=== PATIENT | male | born 1990 | race Caucasian/White ===

== ENCOUNTER 2018-08-25 10:21 | Inpatient (IN) | payer BC, OTHER ==
[2018-08-25] MEDS ORDERED: SODIUM CHLORIDE 0.9% 1000ML 1,000 ML IVS ONE (10:39)
[2018-08-25] MEDS ORDERED: PROMETHAZINE HCL INJ 25 MG in SODIUM CHLORIDE 0.9% 50ML 50 ML IVPB ONE (10:40)
[2018-08-25] MEDS ORDERED: PANTOPRAZOLE SODIUM IV 40 MG VIAL IV ONE (10:40)
[2018-08-25] MEDS ORDERED: THIAMINE HCL INJ 100 MG/ML VIAL IV ONE (10:42)
[2018-08-25] MEDS ORDERED: PROMETHAZINE HCL INJ 25 MG/ML VIAL ONE (10:51)
[2018-08-25] MEDS ORDERED: SODIUM CHLORIDE 0.9% 50ML 50 ML ONE (10:51)
[2018-08-25] MEDS ORDERED: SUCRALFATE 1 GM/10 ML 1 GM UD PO ONE (11:33)
[2018-08-25] MEDS ORDERED: MAGNESIUM SULFATE PREMIX 4GM 4 GM in PREMIX BAG 1 BAG IVPB ONE (11:33)
[2018-08-25] MEDS ORDERED: FOLIC ACID 1 MG TAB PO ONE (11:34)
--- NOTE | 2018-08-25 11:39 | ED.PDOC ---
History of Present Illness - General Chief Complaint: Drug or Alcohol Abuse Stated Complaint: Alcohol withdrawl Time Seen by Provider: 08/25/18 10:34 Source: patient Exam Limitations: no limitations - History of Present Illness Initial Comments: The patient is a 27-year-old male presenting to the emergency room secondary to alcohol withdrawal. He does have a history of drinking a significant amount of alcohol up to a case a day. He has required hospitalization in the past for his withdrawals which include diaphoresis, tremors and delirium. No history of any seizures to this point. He has been throwing up since the middle of last night as well. No blood. No history of any hepatitis or pancreatitis. No history of hospitalization for any other reason and he does not take any daily medications. He is alert and oriented. He is tremulous and mildly diaphoretic. He is otherwise pleasant and cooperative.last alcohol intake was yesterday earlier in the day Timing/Duration: unsure Severity: moderate Improving Factors: nothing Worsening Factors: nothing Associated Symptoms: denies symptoms Allergies/Adverse Reactions: Allergies NO KNOWN ALLERGY Allergy (Verified 08/25/18 10:31) Home Medications: Ambulatory Orders NK [NK] 08/25/18 Review of Systems - Review of Systems Constitutional: States: no symptoms reported, diaphoresis, weakness EENTM: States: no symptoms reported Respiratory: States: no symptoms reported Cardiology: States: no symptoms reported Gastrointestinal/Abdominal: States: see HPI Genitourinary: States: no symptoms reported Musculoskeletal: States: no symptoms reported Skin: States: see HPI Neurological: States: see HPI Endocrine: States: excessive sweating All other Systems: No Change from Baseline Past Medical History (General) - Patient Medical History Hx Seizures: No Hx Stroke: No Hx Dementia: No Hx Asthma: No Hx of COPD: No Hx Cardiac Disorders: No Hx Congestive Heart Failure: No Hx Pacemaker: No Hx Hypertension: No Hx Thyroid Disease: No Hx Diabetes: No Hx Gastroesophageal Reflux: No Hx Renal Disease: No Hx Cancer: No Hx of HIV: No Hx Hepatitis C: No Hx MRSA: No Surgical History: no surgical history - Vaccination History Hx Tetanus, Diphtheria Vaccination: Yes Hx Influenza Vaccination: No Hx Pneumococcal Vaccination: No Immunizations Up to Date: Yes - Social History Hx Tobacco Use: No Hx Alcohol Use: Yes - 12-20 BEERS PER DAY Family Medical History - Family History Mother Family History: No Known Living Status: Still Living Father Family History: No Known Living Status: Still Living Physical Exam - Physical Exam General Appearance: Alert Eye Exam: bilateral normal Ears, Nose, Throat: hearing grossly normal, normal ENT inspection Neck: full range of motion, supple Respiratory: lungs clear, normal breath sounds, no respiratory distress, no accessory muscle use Cardiovascular/Chest: normal peripheral pulses, regular rate, rhythm, no edema Peripheral Pulses: radial,right: 2+, radial,left: 2+, dorsalis pedis,right: 2+, dorsalis pedis,left: 2+ Gastrointestinal/Abdominal: non tender, soft Rectal Exam: deferred Back Exam: normal inspection, no CVA tenderness Extremity: normal range of motion, non-tender, normal inspection, no pedal edema , normal capillary refill Neurologic: applicator sprayer II-XII nml as tested, no motor/sensory deficits, alert, oriented x 3, other - mildly tremulous Skin Exam: normal color - mildly diaphoretic Comments: Vital Signs - 24 hr 08/25/18 10:32 Temperature 98.4 F Pulse Rate [ 90 monitor] Respiratory 18 Rate Blood Pressure 181/105 [Left Arm] O2 Sat by Pulse 97 Oximetry Progress - Progress Progress: 08/25/18 11:47 the patient is a 27-year-old male presenting secondary to alcohol withdrawal. He has had a history of severe withdrawal in the past requiring hospitalization. No history of seizures. The patient also has significant gastritis issues and possibly a mild acute alcoholic hepatitis. The patient has received a liter of IV fluids as well as IV benzodiazepines and IV Phenergan. He is also receiving Protonix and Carafate. He has received multivitamin thiamine and folate. The patient will be admitted for further withdrawal care. He does also have some hypomagnesemia and is receiving IV magnesium. - Results/Orders Results/Orders: 08/25/18 11:33 Magnesium Sulfate Premix 4Gm 4 gm Premix Bag 1 bag IVPB ONCE Laboratory Results - last 24 hr 08/25/18 08/25/18 10:47 10:47 WBC 6.3 RBC 5.43 Hgb 17.4 Hct 50.6 MCV 93.2 MCH 32.0 H MCHC 34.3 RDW 13.2 Plt Count 253 MPV 7.2 L Absolute Neuts (auto) 4.60 Absolute Lymphs (auto) 0.90 L Absolute Monos (auto) 0.70 Absolute Eos (auto) 0.00 Absolute Basos (auto) 0.00 Neutrophils % 72.8 Lymphocytes % 14.9 L Monocytes % 11.8 H Eosinophils % 0.2 L Basophils % 0.3 Sodium 133 L Potassium 3.6 Chloride 95 L Carbon Dioxide 25 Anion Gap 16.6 BUN 6 L Creatinine 0.83 BUN/Creatinine Ratio 7.2 L Random Glucose 106 H Serum Osmolality 264.4 L Calcium 10.5 H Magnesium 1.4 L Total Bilirubin 1.6 H AST 69 H ALT 83 H Alkaline Phosphatase 65 Serum Total Protein 8.5 H Albumin 5.3 Globulin 3.2 Albumin/Globulin Ratio 1.7 Amylase 119 H Lipase 18 L Departure - Departure Clinical Impression: Hypomagnesemia, Hepatitis Alcohol withdrawal syndrome Qualifiers: Complication of substance-induced condition: uncomplicated Qualified Code(s): F10.230 - Alcohol dependence with withdrawal, uncomplicated Gastritis Qualifiers: Gastritis type: alcoholic Chronicity: acute Gastritis bleeding: without bleeding Qualified Code(s): K29.20 - Alcoholic gastritis without bleeding Disposition: Admit Patient Home Medications: Ambulatory Orders NK [NK] 08/25/18 Decision To Admit - Decistion To Admit Decision to Admit Reason: Medical Nature Decision to Admit Date: 08/25/18 Decision to Admit Time: 11:49
[2018-08-25] MEDS ORDERED: MAGNESIUM SULFATE PREMIX 4GM 50 ML IVPB ONE (11:40)
--- NOTE | 2018-08-25 12:05 | HP ---
SUPERVISING PHYSICIAN: Igor Ramos M.D. CHIEF COMPLAINT: Alcohol withdrawal. HISTORY OF PRESENT ILLNESS: Mr. Green is a 27 year-old male patient that presented to the Emergency Room today complaining of alcohol withdrawal. He has a significant history of drinking alcohol in the past up to a case a day and has been hospitalized in the past for withdrawals that include diaphoresis, tremors and delirium. He has no history of any seizures during his last hospitalization stay. He noted that he has been throwing up since the middle of last night but had no blood or any history in the past of pancreatitis. He was having some tremors and was mild diaphoretic initially but very cooperative. Noted his last alcohol intake was yesterday early in the day. He notes that he has been in rehab. He was in a rehab for 2 weeks about 5 months previously and was drinking anywhere from 12 to 24 beers a day. When he got out of rehab his filed divorce on him and he started drinking once again, and has been drinking for well over 4 months, mainly beer. He just moves from [place] back to [place] to be with his family. He denied any suicidal ideations or homicidal ideations. His initial lab work in the E. R. showed a normal white count at 6,300, hemoglobin and hematocrit were 17.4 and 50.6 respectively with platelet count 253,000. Differential showed to be without a left shift. RBC indices were showing to be within normal limits. Chemistries showed a mildly low sodium at 133, potassium 3.6, BUN 60 and creatinine 0.83. Calcium was high at 10.5, magnesium was low at 1.4. Bilirubin was elevated at 1.6 as well as his AST and ALT are both elevated at 69 and 83 respectively. Lipase was 18, amylase was showing to be elevated at 119. In the E. R., he was given 1 mg of Ativan and Folic acid and thiamine as well as fluids. He is now going to be admitted for acute alcohol withdrawal. He was in stable condition at time of admission. PAST MEDICAL HISTORY: No significant medical history listed. PAST SURGICAL HISTORY: None listed. CURRENT MEDICATIONS: [id number] medications or replacements: None listed. ALLERGIES: NO KNOWN DRUG ALLERGIES. FAMILY HISTORY: His dad and grandfather both have a history of alcoholism, otherwise no other significant medical history listed. SOCIAL HISTORY: The patient is currently unemployed, just recently moved from [place] to [place]. He reports he drinks alcohol on a daily basis and has for well over 4 to 5 months anywhere from 12 to 24 beers and recently in the last week he has been drinking hard liquor. He denies any tobacco or illicit drug use. REVIEW OF SYSTEMS: CONSTITUTIONAL: Notes some diaphoresis and weakness. HEENT: Denies any headaches, vision changes, sore throat, nasal congestion, ear aches. RESPIRATORY: Denies any shortness of breath, wheezing or coughing. CARDIOVASCULAR: Denies any chest pains, palpitations or syncopal episodes. GASTROINTESTINAL: As noted in History of Present Illness, some nausea and emesis in the last 24 hours. GENITOURINARY: Denies any dysuria, hematuria or polyuria. MUSCULOSKELETAL: Denies any arthralgias or other malaise, edema. INTEGUMENT: No diaphoresis. NEUROLOGIC: Noted tremors with no reported seizure activity, vision changes, ataxia, but has noted some hallucinations more so in the peripheral, nothing specific. PSYCHOLOGICAL: Denies any suicidal or homicidal ideations. Denies any auditory hallucinations but has been having some visual hallucinations. No tactile or sensory changes. PHYSICAL EXAMINATION: VITAL SIGNS: Initial vital signs in the E. R. showed temperature 98.4, pulse 90 , blood pressure 181/105, respirations 18, satting 97%. After Ativan and prior to admission to the Medical/Surgical floor he was showing a pulse of 75, blood pressure 137/87, respirations 20, satting 97% on room air. Admission weight 78.4 kg. GENERAL: The patient is alert, somewhat dehydrated-looking but is well kempt, well groomed and in no acute obvious distress, although somewhat anxious. HEENT: Tympanic membranes are clear bilaterally. Oropharynx was pink with dry mucosal membranes. NECK: Supple, non-tender with full range of motion. No jugular venous distention. CHEST: Lungs were clear to auscultation bilaterally without any rhonchi, wheezing or rales. CARDIOVASCULAR: Regular rate and rhythm without appreciable murmurs, gallops, or rubs. ABDOMEN: Soft, non-tender. Positive bowel sounds. EXTREMITIES: Without any clubbing, cyanosis or edema. NEUROLOGIC: Cranial nerves II-XII are grossly intact. No motor or sensory deficits noted. He is alert and oriented times three with mild tremors. Facial features are symmetrical. Extraocular movements are within normal limits. No notable nystagmus. SKIN: [place] and warm with some mild diaphoresis. PSYCHIATRIC: Denies any ideations of suicide or homicide tendencies and has reported some visual hallucinations but no auditory or tactile. His thought process is normal. LABORATORY STUDIES: CBC showed white count 6,300, platelet count 253,000. Differential showed to be within normal limits. Chemistries showed sodium 133, potassium 3.6, BUN 6, creatinine 0.83, glucose 106, calcium 10.5, magnesium 1.4. Bilirubin 1.6. AST and ALT were both elevated at 69 and 83 respectively. Lipase was within normal limits. Amylase was slightly elevated. RADIOLOGY: No radiographic studies were obtained to admission. ASSESSMENT: 1. Acute alcohol withdrawal syndrome with no mention of seizures and mild visual hallucinations. No auditory hallucinations. 2. Elevated liver enzymes probably due to acute alcohol ingestion and dehydration in the last 24 hours with no signs of cirrhosis. 3. Elevated amylase probably due to dehydration from acute alcohol consumption within the last 24 hours. 4. Moderate dehydration. 5. Electrolyte imbalance with hyponatremia and hypomagnesemia secondary to chronic alcohol usage. 6. History of alcoholism. PLAN: The patient is going to be admitted to the Medical/Surgical floor for close monitoring with seizure precautions and neurological assessments as well as continued cardiac monitoring as he is provided Benzodiazepines including Librium and Ativan as needed for acute withdrawal syndrome. Will go ahead and start him on a multivitamin infusion with thiamine 100 mg daily for 3 days as well as start him on some folic acid. I will start him on some Protonix and Carafate with a regular diet initiation. He will be on DVT prophylaxis as per protocol. Will provide fluid resuscitation and replacement as needed given that he is dehydrated. Will start with LR and monitor electrolytes in the morning. Will have p.r.n. Ativan for any seizure activity as well as if we need to increase Librium should he have any increase in his symptoms. At this point will schedule 10 mg every 6 hours on the Librium and adjust as needed. Will anticipate his length of stay to be at least 2 to 3 days. Until he can transition to outpatient management will continue to monitor and treat as needed. I did talk to him about his plans at time of discharge. He says that he had a good support system at home and has a strong amish family, but at this point chooses not to do any outpatient rehabilitation. #[id number] [facility]
[2018-08-25] MEDS ORDERED: SODIUM CHLORIDE 0.9% (FLUSH) 10 ML SYG IV PRN ×2 (12:45)
[2018-08-25] MEDS ORDERED: MULTIPLE VITAMIN 10 ML VIAL ONE (12:52)
[2018-08-25] MEDS ORDERED: ACETAMINOPHEN 325 MG TAB PO PRN (12:56)
[2018-08-25] MEDS ORDERED: LACTATED RINGERS 1,000 ML IVS PRN (12:56)
[2018-08-25] MEDS ORDERED: ONDANSETRON INJ 4 MG/2 ML VIAL IV PRN (12:56)
[2018-08-25] MEDS ORDERED: IV SET AND CAP CHANGE INJ INJ SCH ×2 (13:00)
[2018-08-25] MEDS ORDERED: MULTIPLE VITAMIN INJ 10 ML, FOLIC ACID INJ 1 MG in SODIUM CHLORIDE 0.9% 1000ML 1,000 ML IVS SCH (13:00)
[2018-08-25] MEDS ORDERED: FOLIC ACID INJ 5 MG/ML VIAL ONE (13:19)
[2018-08-25] MEDS: chlordiazePOXIDE HCL 5 MG CAP PO SCH ×2 (13:22→18:08)
[2018-08-25] MEDS ORDERED: MULTIPLE VITAMIN INJ 10 ML, THIAMINE HCL INJ 100 MG in SODIUM CHLORIDE 0.9% 1000ML 1,00... IVS SCH (19:00)
[2018-08-25] MEDS: LACTATED RINGERS 1,000 ML IVS PRN (20:12)
[2018-08-25] MEDS ORDERED: ENOXAPARIN SODIUM 40 MG/0.4 ML SYG SUBCU SCH (21:00)
[2018-08-26] MEDS: chlordiazePOXIDE HCL 5 MG CAP PO SCH ×2 (01:03→06:23)
[2018-08-26] MEDS: LACTATED RINGERS 1,000 ML IVS PRN (02:38)
[2018-08-26] MEDS ORDERED: THIAMINE HCL INJ 100 MG/ML VIAL ONE (08:29)
[2018-08-26] MEDS ORDERED: SODIUM CHLORIDE 0.9% 1000ML 1,000 ML ONE (08:29)
[2018-08-26] MEDS ORDERED: MULTIPLE VITAMIN 10 ML VIAL ONE (08:30)
[2018-08-26] MEDS ORDERED: MULTIPLE VITAMIN INJ 10 ML, THIAMINE HCL INJ 100 MG in SODIUM CHLORIDE 0.9% 1000ML 1,00... IVS SCH (09:00)
[2018-08-26 09:53] VITALS: BP 153/98; TEMP 98.3; O2SAT 99
[2018-08-26] MEDS ORDERED: THIAMINE HCL INJ 100 MG/ML VIAL IV ONE (10:42)
[2018-08-26] MEDS ORDERED: FOLIC ACID 1 MG TAB PO ONE (11:34)
--- NOTE | 2018-08-27 11:50 | DS ---
SUPERVISING PHYSICIAN: Igor Ramos M.D. ADMISSION DIAGNOSIS: 1. Acute alcohol withdrawal syndrome with no mention of seizures and mild visual hallucinations. No auditory hallucinations. 2. Elevated liver enzymes probably due to acute alcohol ingestion and dehydration in the last 24 hours with no signs of cirrhosis. 3. Elevated amylase probably due to dehydration from acute alcohol consumption within the last 24 hours. 4. Moderate dehydration. 5. Electrolyte imbalance with hyponatremia and hypomagnesemia secondary to chronic alcohol usage. 6. History of alcoholism. DISCHARGE DIAGNOSIS: 1. Acute alcohol withdrawal syndrome with no mention of seizures and mild visual hallucinations. No auditory hallucinations with no noted complications with no additional hallucinations noted. 2. Elevated liver enzymes probably due to acute alcohol ingestion and dehydration in the last 24 hours with no signs of cirrhosis, now is returning to baseline. 3. Elevated amylase probably due to dehydration from acute alcohol consumption within the last 24 hours with levels returning to baseline. 4. Moderate dehydration, resolved. 5. Electrolyte imbalance with hyponatremia and hypomagnesemia secondary to chronic alcohol usage, resolved. 6. History of alcoholism. Encouraged to seek followup with outpatient management. REASON FOR HOSPITALIZATION: Mr. Green is a 27 year-old male patient that presented to the Emergency Room today complaining of alcohol withdrawal. He has a significant history of drinking alcohol in the past up to a case a day and has been hospitalized in the past for withdrawals that include diaphoresis, tremors and delirium. He has no history of any seizures during his last hospitalization stay. He noted that he has been throwing up since the middle of last night but had no blood or any history in the past of pancreatitis. He was having some tremors and was mild diaphoretic initially but very cooperative. Noted his last alcohol intake was yesterday early in the day. He notes that he has been in rehab. He was in a rehab for 2 weeks about 5 months previously and was drinking anywhere from 12 to 24 beers a day. When he got out of rehab his filed divorce on him and he started drinking once again, and has been drinking for well over 4 months, mainly beer. He just moves from [place] back to [place] to be with his family. He denied any suicidal ideations or homicidal ideations. His initial lab work in the E. R. showed a normal white count at 6,300, hemoglobin and hematocrit were 17.4 and 50.6 respectively with platelet count 253,000. Differential showed to be without a left shift. RBC indices were showing to be within normal limits. Chemistries showed a mildly low sodium at 133, potassium 3.6, BUN 60 and creatinine 0.83. Calcium was high at 10.5, magnesium was low at 1.4. Bilirubin was elevated at 1.6 as well as his AST and ALT are both elevated at 69 and 83 respectively. Lipase was 18, amylase was showing to be elevated at 119. In the E. R., he was given 1 mg of Ativan and Folic acid and thiamine as well as fluids. He is now going to be admitted for acute alcohol withdrawal. He was in stable condition at time of admission. LABORATORY STUDIES: CBC on admission and discharge were basically within normal limits. No left shift. Chemistries showed initial sodium of 133 with BUN 6, creatinine 0.3. AST was elevated at 69, ALT at 83. Lipase 118, amylase 119. Prior to discharge electrolytes normalized. AST was down to 47, ALT normalized at 60. Amylase normalized at 78. RADIOLOGY: No radiographic studies. HOSPITAL COURSE: Mr. Green was admitted as noted on 08/25/18 treated for acute alcohol withdrawal. Put on scheduled Librium 10 mg every 6 hours. He was provided multivitamin infusion as well as folic acid and thiamine. No complications. On morning of discharge, it was felt that he was prepared to discharge and was physically and physiologically better. He was able to transition to outpatient management. PLAN: Mr. Green was discharged on 08/26/[address] Rey next week after discharge. He was encouraged to followup with outpatient management via a ep[facility] group or lean on family members to continue with alcohol cessation and to assist with further management of his alcohol abuse. He was told to return to the E. R. if he had any concerning symptoms. Continue with encouraging fluids to prevent dehydration. DISPOSITION: Discharged to family members. Condition on discharge was stable and improved. #[id number] [facility]
== END 2018-08-26 10:03 | disposition home or self-care (01) | DRG 897 ==
LOC: ER 10:21 → OBSVTOIN 12:02 → MS 12:02
PROVIDERS: ADMIT Nurse Practitioner Family; ATTEND Nurse Practitioner Family
DX: F10.239 Alcohol dependence with withdrawal, unspecified (principal); E87.1 Hypo-osmolality and hyponatremia; R44.1 Visual hallucinations; E86.0 Dehydration; E83.42 Hypomagnesemia

== ENCOUNTER 2019-02-11 07:15 | Emergency (ER) | payer SELFPAY ==
[2019-02-11] MEDS ORDERED: MULTIPLE VITAMIN INJ 10 ML, THIAMINE HCL INJ 100 MG, FOLIC ACID INJ 1 MG in SODIUM CHLO... IVS SCH (07:30)
--- NOTE | 2019-02-11 07:36 | ED.PDOC ---
History of Present Illness - General Chief Complaint: Drug or Alcohol Abuse Stated Complaint: alcohol withdrawal Time Seen by Provider: 02/11/19 07:23 Source: patient, family Exam Limitations: no limitations - History of Present Illness Initial Comments: Patient presents after having a seizure this morning. The mother says that she heard him starting to have the seizure and then went to check on him. She says that his eyes were rolled back and his upper extremities were in flexion. She thinks it lasted about 30 seconds. He does not remember it but he says that he has never had a seizure before. His mother corroborates that. He says he is a daily drinker who usually has about 12 beers on weekdays and 24 on the weekends. He stopped drinking two days ago on his own. He says he has been treated for alcohol withdrawal before. He currently feels shaky and sweaty. No other complaints. Timing/Duration: resolved prior to arrival Severity: moderate Improving Factors: nothing Worsening Factors: nothing Associated Symptoms: other - see HPI Allergies/Adverse Reactions: Allergies NO KNOWN ALLERGY Allergy (Verified 08/25/18 10:31) Home Medications: Ambulatory Orders NK 02/11/19 Review of Systems - Review of Systems Constitutional: States: see HPI EENTM: States: no symptoms reported Respiratory: States: no symptoms reported Cardiology: States: no symptoms reported Gastrointestinal/Abdominal: States: no symptoms reported Genitourinary: States: no symptoms reported Musculoskeletal: States: no symptoms reported Skin: States: no symptoms reported Neurological: States: see HPI Endocrine: States: no symptoms reported Hematologic/Lymphatic: States: no symptoms reported Past Medical History (General) - Patient Medical History Hx Seizures: No Hx Stroke: No Hx Dementia: No Hx Asthma: No Hx of COPD: No Hx Cardiac Disorders: No Hx Congestive Heart Failure: No Hx Pacemaker: No Hx Hypertension: Yes Hx Thyroid Disease: No Hx Diabetes: No Hx Gastroesophageal Reflux: No Hx Renal Disease: No Hx Cancer: No Hx of HIV: No Hx Hepatitis C: No Hx MRSA: No - Vaccination History Hx Tetanus, Diphtheria Vaccination: Yes Hx Influenza Vaccination: No Hx Pneumococcal Vaccination: No - Social History Hx Tobacco Use: No Hx Alcohol Use: Yes Hx Substance Use: No Hx Physical Abuse: No Hx Emotional Abuse: No Family Medical History - Family History Mother Family History: No Known Living Status: Still Living Father Family History: No Known Living Status: Still Living Physical Exam - Physical Exam General Appearance: Alert Eye Exam: bilateral normal Ears, Nose, Throat: normal ENT inspection Neck: non-tender, full range of motion, supple Respiratory: lungs clear, normal breath sounds Cardiovascular/Chest: normal peripheral pulses, regular rate, rhythm, no edema Gastrointestinal/Abdominal: normal bowel sounds, non tender, soft Back Exam: normal inspection, no CVA tenderness Extremity: normal range of motion, non-tender Neurologic: dry primer powder blender II-XII nml as tested, no motor/sensory deficits, alert, normal mood/affect, oriented x 3 Skin Exam: normal color Lymphatic: no adenopathy Progress - Progress Progress: 02/11/19 09:22 Laboratory Tests 02/11/19 02/11/19 02/11/19 07:23 07:23 07:24 WBC 4.1 L RBC 4.91 Hgb 16.2 Hct 45.3 MCV 92.3 MCH 33.1 H MCHC 35.8 RDW 13.5 Plt Count 84 L MPV 7.9 Absolute Neuts (auto) 2.60 Absolute Lymphs (auto) 0.40 L Absolute Monos (auto) 1.10 H Absolute Eos (auto) 0.00 Absolute Basos (auto) 0.00 Neutrophils % 62.7 Lymphocytes % 10.0 L Monocytes % 27.0 H Eosinophils % 0.1 L Basophils % 0.2 Sodium 123 L Potassium 3.4 L Chloride 84 L Carbon Dioxide 23 Anion Gap 19.4 H BUN 6 L Creatinine 0.69 BUN/Creatinine Ratio 8.7 L POC Glucose Random Glucose 104 Serum Osmolality 245.7 L* Calcium 9.1 Magnesium 1.8 Total Bilirubin 1.0 GGT AST 170 H ALT 98 H Alkaline Phosphatase 67 Creatine Kinase Serum Total Protein 7.8 Albumin 4.1 Globulin 3.7 H Albumin/Globulin Ratio 1.1 Lipase 33 Urine Color Urine Appearance Urine pH Ur Specific Mcgregor Urine Protein Urine Glucose (UA) Urine Ketones Urine Blood Urine Nitrite Urine Bilirubin Urine Urobilinogen Ur Leukocyte Esterase Urine RBC Urine WBC Ur Epithelial Cells Urine Bacteria Salicylates Urine Opiates Screen Acetaminophen Urine Barbiturates Ur Phencyclidine Scrn U Amphetamin/Meth Scrn U Benzodiazepines Scrn U Cocaine Metab Screen U Cannabinoids Screen Ethyl Alcohol 02/11/19 02/11/19 02/11/19 07:24 07:25 07:25 WBC RBC Hgb Hct MCV MCH MCHC RDW Plt Count MPV Absolute Neuts (auto) Absolute Lymphs (auto) Absolute Monos (auto) Absolute Eos (auto) Absolute Basos (auto) Neutrophils % Lymphocytes % Monocytes % Eosinophils % Basophils % Sodium Potassium Chloride Carbon Dioxide Anion Gap BUN Creatinine BUN/Creatinine Ratio POC Glucose 103 Random Glucose Serum Osmolality Calcium Magnesium Total Bilirubin GGT AST ALT Alkaline Phosphatase Creatine Kinase Serum Total Protein Albumin Globulin Albumin/Globulin Ratio Lipase Urine Color Urine Appearance Urine pH Ur Specific Mcgregor Urine Protein Urine Glucose (UA) Urine Ketones Urine Blood Urine Nitrite Urine Bilirubin Urine Urobilinogen Ur Leukocyte Esterase Urine RBC Urine WBC Ur Epithelial Cells Urine Bacteria Salicylates < 4.0 Urine Opiates Screen Negative Acetaminophen < 10.0 L Urine Barbiturates Negative Ur Phencyclidine Scrn Negative U Amphetamin/Meth Scrn Negative U Benzodiazepines Scrn Negative U Cocaine Metab Screen Negative U Cannabinoids Screen Negative Ethyl Alcohol 02/11/19 02/11/19 02/11/19 07:44 07:47 07:50 WBC RBC Hgb Hct MCV MCH MCHC RDW Plt Count MPV Absolute Neuts (auto) Absolute Lymphs (auto) Absolute Monos (auto) Absolute Eos (auto) Absolute Basos (auto) Neutrophils % Lymphocytes % Monocytes % Eosinophils % Basophils % Sodium Potassium Chloride Carbon Dioxide Anion Gap BUN Creatinine BUN/Creatinine Ratio POC Glucose Random Glucose Serum Osmolality Calcium Magnesium Total Bilirubin GGT 342 H AST ALT Alkaline Phosphatase Creatine Kinase 574 H* Serum Total Protein Albumin Globulin Albumin/Globulin Ratio Lipase Urine Color Urine Appearance Urine pH Ur Specific Mcgregor Urine Protein Urine Glucose (UA) Urine Ketones Urine Blood Urine Nitrite Urine Bilirubin Urine Urobilinogen Ur Leukocyte Esterase Urine RBC Urine WBC Ur Epithelial Cells Urine Bacteria Salicylates Urine Opiates Screen Acetaminophen Urine Barbiturates Ur Phencyclidine Scrn U Amphetamin/Meth Scrn U Benzodiazepines Scrn U Cocaine Metab Screen U Cannabinoids Screen Ethyl Alcohol < 2.00 02/11/19 08:29 WBC RBC Hgb Hct MCV MCH MCHC RDW Plt Count MPV Absolute Neuts (auto) Absolute Lymphs (auto) Absolute Monos (auto) Absolute Eos (auto) Absolute Basos (auto) Neutrophils % Lymphocytes % Monocytes % Eosinophils % Basophils % Sodium Potassium Chloride Carbon Dioxide Anion Gap BUN Creatinine BUN/Creatinine Ratio POC Glucose Random Glucose Serum Osmolality Calcium Magnesium Total Bilirubin GGT AST ALT Alkaline Phosphatase Creatine Kinase Serum Total Protein Albumin Globulin Albumin/Globulin Ratio Lipase Urine Color Yellow Urine Appearance Clear Urine pH 7.0 Ur Specific Mcgregor 1.010 Urine Protein Negative Urine Glucose (UA) Negative Urine Ketones Negative Urine Blood Small H Urine Nitrite Negative Urine Bilirubin Negative Urine Urobilinogen 0.2 Ur Leukocyte Esterase Negative Urine RBC 0 Urine WBC 0 Ur Epithelial Cells 0 Urine Bacteria 0 Salicylates Urine Opiates Screen Acetaminophen Urine Barbiturates Ur Phencyclidine Scrn U Amphetamin/Meth Scrn U Benzodiazepines Scrn U Cocaine Metab Screen U Cannabinoids Screen Ethyl Alcohol Anion gap slightly elevated but bicarbonate was 23. No ketones in the urine. Patient is not likely in alcoholic ketoacidosis. Also, BAL was negative. GGT, AST, ALT all mildly elevated. T.Bili was 1.0. No recreational drugs detected in the urine. Lipase wnl. Patient was given Ativan 2 mg IV x one then a Banana bag 1 liter IV x one. I spoke with Alberto Do briefly and it was mutually agreed that this patient needed PCU or may even end up in ICU if seizures recur. Dr. Solis at accepted the patient to PCU. It was mutually agree with her to given another dose of Ativan 2 mg IV x one before transfer. He was also started on NS at 200 ml/hour. Questions were elicited and answered from the patient. He voiced understanding and agreement with the plan. Departure - Departure Clinical Impression: Alcohol withdrawal syndrome, Seizure due to alcohol withdrawal Disposition: Transfer to Hospital Condition: Fair Departure Forms: ED Discharge - Pt. Copy, Patient Portal Self Enrollment Instructions: DI for Drug Overdose in Adults Diet: other Activity: as per physical therapy Referrals: Stiven Rey MD [Primary Care Provider] - 1-2 Weeks Home Medications: Ambulatory Orders NK 02/11/19
[2019-02-11] MEDS ORDERED: MULTIPLE VITAMIN 10 ML VIAL ONE (07:41)
[2019-02-11] MEDS ORDERED: SODIUM CHLORIDE 0.9% 1000ML 1,000 ML ONE ×2 (07:42→09:53)
[2019-02-11] MEDS ORDERED: THIAMINE HCL INJ 100 MG/ML VIAL ONE (07:42)
[2019-02-11] MEDS ORDERED: FOLIC ACID INJ 5 MG/ML VIAL ONE (07:48)
[2019-02-11] MEDS ORDERED: MULTIPLE VITAMIN INJ 10 ML, FOLIC ACID INJ 1 MG in SODIUM CHLORIDE 0.9% 1000ML 1,000 ML IVS SCH (08:00)
[2019-02-11] MEDS ORDERED: THIAMINE HCL INJ 100 MG/ML VIAL IV SCH (09:00)
[2019-02-11] MEDS ORDERED: SODIUM CHLORIDE 0.9% 1000ML 1,000 ML IVS PRN (09:56)
[2019-02-11 09:58] VITALS: BP 143/90; TEMP 98.9; O2SAT 96
== END 2019-02-11 10:10 | disposition short-term general hospital (02) ==
LOC: ER 07:15
DX: R56.9 Unspecified convulsions (principal); F10.239 Alcohol dependence with withdrawal, unspecified; I10 Essential (primary) hypertension
CPT/HCPCS: 36415; 80053; 80307; 80320; 80329; 81001; 82550; 82948; 82977; 83690; 83735; 85025; 93005; J2060; J3411; J7030